=== PATIENT | female | born 2005 | race Caucasian/White ===

== ENCOUNTER 2024-05-10 11:35 | Emergency (ER) | payer OTHER, SELFPAY ==
[2024-05-10 11:55] VITALS: BP 113/73; PULSE 94; RESP 16; TEMP 37; O2SAT 99; BMI 21.2
--- NOTE | 2024-05-10 11:57 | ED.GENADULT ---
HPI - General Adult General Chief complaint: General Medical Stated complaint: Diagnosed [place] Not Feeling Well Time Seen by Provider: 05/10/24 11:57 Source: patient, RN notes reviewed and old records reviewed Mode of arrival: ambulatory Limitations: no limitations History of Present Illness ED Provider: Ludmila URRUTIA narrative: 18-year-old female presents for evaluation of a sore throat. She reports she was diagnosed with mononucleosis at her [facility] yesterday. She had a throat culture performed but does not yet know the results of that. She is able to swallow but has pain with swallowing. She reports that she is seeking ?some stronger pain medication. She feels fatigued but otherwise has no other complaints or concerns at this time Related Data Previous Rx's ?Medication ?Instructions ?Recorded dexamethasone 4 mg tablet 4 mg PO BID #6 tabs 05/10/24 ibuprofen 600 mg tablet 600 mg PO Q6H PRN pain #20 tabs 05/10/24 Allergies Allergy/AdvReac Type Severity Reaction Status Date / Time egg [Egg] Allergy Mild HIVES Verified 05/10/24 11:57 Review of Systems Constitutional: Constitutional: Denies body ache(s), Denies chills, Denies fever(s) and Reports malaise ENT: Reports sore throat and Denies throat swelling Cardiovascular: Cardiovascular: Denies chest pain and Denies dyspnea Respiratory: Respiratory: Denies cough and Denies dyspnea Gastrointestinal: Gastrointestinal: Denies abdominal pain, Denies nausea and Denies vomiting Integumentary/Breasts: Skin/Breast: Denies rash Psychiatric: Psychiatric: Denies anxiety Allergic/Immunologic: Allergic/Immunologic: Denies throat swelling PMFSH Social History Social History Advance Directives: No Advance Directives Information Provided: Yes Physical Exam ED Vital Signs: Vital Signs - 24 hr 05/10/24 11:55 Temperature 98.6 F Pulse Rate 94 Respiratory Rate 16 Blood Pressure 113/73 Pulse Oximetry 99 Oxygen Delivery Method Room Air BMI result Body Mass Index 21.2 Const General: healthy appearing, comfortable, no acute distress, alert and awake Nutritional Appearance: well nourished Orientation/consciousness: patient oriented x3 HENMT Other: Erythematous oropharynx with bilateral tonsillar hypertrophy, no exudates, no evidence of abscess Head: Yes normocephalic and Yes atraumatic Eyes Eyelids: Yes eyelids normal Conjunctivae: conjunctivae normal Sclerae: sclerae normal Corneas: corneas normal Pupils: Equal, round and reactive pupils present EOM: EOMs intact bilaterally Neck Neck: Yes full ROM Resp Effort & Inspection: normal respiratory effort, able to speak in complete sentences and not labored Skin General skin exam: elasticity normal Neuro General: patient oriented x3 Cranial nerves: Yes Equal, round and reactive pupils present and Yes Bilaterally intact EOM present Cognition (Neuro): normal cognition Extrem Other: Moving all extremities well without any obvious deformities Medical Decision Making Medical Decision Making MDM Narrative: 18-year-old female presents with a known diagnosis of mononucleosis. She has no evidence of airway obstruction, she is able to tolerate p.o.. There was no evidence of abscess. We will treat with ibuprofen and dexamethasone. I offered rapid strep testing the patient declines. She will await the throat culture that was performed yesterday. Differential Diagnosis Differential Diagnoses: The differential diagnosis associated with the presentation includes Mononucleosis Pharyngitis Strep pharyngitis Upper respiratory infection Tests considered The following testing was considered but not selected: Considered rapid strep testing Prescription Management I considered prescription management with: Pain Medication Discharge Plan Discharge Clinical Impression: Mononucleosis Patient Disposition: Home, Self-Care Instructions: Mononucleosis (ED) Additional Instructions: Take dexamethasone twice daily for the next 3 days. Use ibuprofen up to every 6 hours as needed for pain and sore throat. You may also use [id number] magic mouthwash to help with the sore throat. Drink lots of fluids. Follow-up with your primary provider Prescriptions: New dexamethasone 4 mg tablet 4 mg PO BID Qty: 6 0RF ibuprofen 600 mg tablet 600 mg PO Q6H PRN (Reason: pain) Qty: 20 0RF Print Language: Lebanese
== END 2024-05-10 12:08 | disposition home or self-care (01) ==
PROVIDERS: Emergency Provider Emergency Medicine
DX: B27.90 Infectious mononucleosis, unspecified without complication (principal); J02.9 Acute pharyngitis, unspecified
CPT/HCPCS: 99281; 99282